=== PATIENT | female | born 1945 | race Caucasian/White ===

== ENCOUNTER 2017-09-18 08:35 | Outpatient (CLI) | payer MEDICARE ==
--- NOTE | 2017-09-18 12:10 | MRI ---
LUMBAR SPINE MRI NONCONTRAST: INDICATIONS: Low back pain with right lower extremity weakness. COMPARISON: 01/25/2016 FINDINGS: There are chronic endplate irregularities of the imaged low thoracic and lumbar spine. There is no a cute compression fracture or significant subluxation. The conus medullaris terminates at the L1 leve l. There is multilevel bilateral moderate degenerative facet hypertrophy, greatest inferiorly, withi n the lumbar spine. L5-S1: Disk osteophyte effaces the ventral thecal sac without significant central canal stenosis. M ild bilateral neural foraminal narrowing present. L4-L5: There is a left asymmetric disk osteophyte complex. Mild narrowing of the central canal is s een. There is mild right foraminal narrowing. No high grade left foraminal stenosis. L3-L4: Disk osteophyte complex results in minimal narrowing of the central canal. No high grade for aminal stenosis. L2-L3: Mild narrowing of the central canal due to a broad-based disk osteophyte. No high grade fora flex stenosis. L1-L2: Mild narrowing of the central canal. There is no significant compromise of the central canal or neural foramina otherwise depicted. IMPRESSION: Multilevel degenerative change of the lumbar spine, as outlined above. No significant interval detri mental change, comparing to 01/25/2016 examination. POS: [facility]
--- NOTE | 2017-09-18 12:20 | MRI ---
MRI PELVIS NONCONTRAST: CLINICAL HISTORY: Bilateral hip pain. FINDINGS: No acute marrow edema of the pelvic osseous structures. Minimal fluid signal intensity of each hip j oint is present without a significant joint effusion. There is mild osteophytosis of the sacroiliac joints. Incidental note of degenerative change at the low lumbar spine. There is a Tarlov cyst at t he S2 level. Mild degenerative signal alteration of each hip joint is present. No femoral head berenice apse. IMPRESSION: 1. No acute marrow edema of the pelvis osseous structures. 2. There is age-suspected mild degenerative change. 3. Incidental note of Tarlov cyst. POS: [facility]
== END 2017-09-18 08:36 | disposition home or self-care (01) ==
LOC: SCSMRI 08:35
PROVIDERS: ATTEND Physical Medicine & Rehabilitation
DX: R10.2 Pelvic and perineal pain (principal); M54.5 Low back pain; R53.1 Weakness; M79.604 Pain in right leg; G96.19 Other disorders of meninges, not elsewhere classified; M47.896 Other spondylosis, lumbar region
CPT/HCPCS: 72148; 72195

== ENCOUNTER 2018-03-06 10:41 | Outpatient (CLI) | payer MEDICARE ==
--- NOTE | 2018-03-06 13:18 | BD ---
BONE DENSITOMETRY USING DEXA: Date: 03/06/18 HISTORY: Postmenopausal screening for osteoporosis. FINDINGS: HIPS: BMD (g/cm2) Right Hip: Neck: 0.908 T-Score: 0.5 Z-Score: 2.4 Total: 1.067 T-Score: 1.0 Z-Score: 2.6 Left Hip: Neck: 0.897 T-Score: 0.4 Z-Score: 2.3 Total: 1.090 T-Score: 1.2 Z-Score: 2.8 IMPRESSION: Normal bone mineral density. No evidence of osteopenia/osteoporosis. POS: [facility]
== END 2018-03-06 10:42 | disposition home or self-care (01) ==
LOC: BICMAMMO 10:41
PROVIDERS: ATTEND Family Medicine
DX: Z12.31 Encounter for screening mammogram for malignant neoplasm of breast (principal); Z13.820 Encounter for screening for osteoporosis; M47.896 Other spondylosis, lumbar region
CPT/HCPCS: 77063; 77067; 77080

== ENCOUNTER 2021-03-16 14:23 | Outpatient (CLI) | payer MEDICARE | END 2021-03-16 14:24 | disposition home or self-care (01) | LOC: BICMAMMO 14:23 | PROVIDERS: ATTEND Physician Assistant | DX: Z12.31 Encounter for screening mammogram for malignant neoplasm of breast (principal); Z13.820 Encounter for screening for osteoporosis; Z78.0 Asymptomatic menopausal state | CPT/HCPCS: 77063; 77067; 77080 ==

== ENCOUNTER 2021-11-30 14:12 | Outpatient (CLI) | payer MEDICARE ==
[2021-11-30 15:28] LABS: #Basophils 0.1 10x3/uL (0.0-0.2); #Eosinphils 0.2 10x3/uL (0.0-0.5); #Monocytes 0.6 10x3/uL (0.0-1.1); #Neutrophils 3.8 10x3/uL (1.5-8.4); %Basophils 0.8 % (0.0-2.0); %Eosinophils 3.1 % (0.0-6.0); %Lymphocytes 36.4 % (18.0-47.0); %Monocytes 7.6 % (0.0-10.0); %Neutrophils 51.8 % (40.0-75.0); Hemoglobin 14.8 g/dL (12.0-15.5); Mean Corpuscular Hemoglobin 28.8 pg (27.0-33.0); Mean Corpuscular Volume 87.5 fl (81.6-98.3); Platelet Count 261 10x3/uL (150-450); RBC Distribution Width 13.2 % (11.5-14.5); Red Blood Cell (RBC) Count 5.13 10x6/uL (3.90-5.03); White Blood Cell (WBC) Count 7.3 10x3/uL (3.5-10.5)
[2021-11-30 15:44] LABS: Anion Gap 15 mmol/L (10-20); BUN (Urea Nitrogen) 17 mg/dL (9.8-20.1); Calc. Creatinine Clearance 0 mL/min (70-130); Calcium 9.4 mg/dL (7.8-10.44); Carbon Dioxide 22 mmol/L (23-31); Chloride 103 mmol/L (98-107); Estimated GFR 49; Glucose 148 mg/dL (83-110); Potassium 3.9 mmol/L (3.5-5.1); Sodium 136 mmol/L (136-145)
== END 2021-11-30 14:13 | disposition home or self-care (01) ==
LOC: LABBT 14:12
PROVIDERS: ATTEND Orthopaedic Surgery
DX: Z01.818 Encounter for other preprocedural examination (principal); M17.12 Unilateral primary osteoarthritis, left knee; Z20.822 Contact with and (suspected) exposure to COVID-19
CPT/HCPCS: 80048; 85025; 85610; 87081; 87811; 93005; 93010

== ENCOUNTER 2022-01-11 10:32 | Inpatient (IN) | payer MEDICARE ==
[2022-01-11 11:09] LABS: #Basophils 0.1 thou/uL (0.0-0.2); #Eosinphils 0.1 thou/uL (0.0-0.7); #Lymphocytes 2.5 thou/uL (1.20-3.40); #Monocytes 0.8 thou/uL (0.11-0.59); #Neutrophils 5.3 thou/uL (1.40-6.50); %Basophils 0.6 % (0.0-1.0); %Eosinophils 1.7 % (0.0-10.0); %Lymphocytes 28.3 % (21.0-51.0); %Monocytes 8.7 % (0.0-10.0); %Neutrophils 60.8 % (42.0-75.0); Hemoglobin 14.1 g/dL (12.0-16.0); Mean Corpuscular HGB CONC 32.1 g/dL (32.0-36.0); Mean Corpuscular Hemoglobin 29.5 pg (27.0-31.0); Mean Corpuscular Volume 91.7 fl (78.0-98.0); Mean Platelet Volume 7.7 fL (7.4-10.4); Platelet Count 248 thou/uL (130-400); RBC Distribution Width 12.4 % (11.5-14.5); Red Blood Cell (RBC) Count 4.79 mill/uL (4.20-5.40); White Blood Cell (WBC) Count 8.7 thou/uL (4.8-10.8)
[2022-01-11] MEDS ORDERED: FENTANYL 50 MCG/ML VIAL 50 MCG/ML VIAL ONE ×4 (11:17→16:32)
[2022-01-11 11:53] LABS: ALT (SGPT) 23 U/L (8-55); AST (SGOT) 32 U/L (5-34); Albumin 3.8 g/dL (3.4-4.8); Alkaline Phosphatase 95 U/L (40-110); Anion Gap 14 mmol/L (10-20); BUN (Urea Nitrogen) 21 mg/dL (9.8-20.1); Bilirubin, Total 0.5 mg/dL (0.2-1.2); Calc. Creatinine Clearance 0 mL/min (70-130); Calcium 9.3 mg/dL (7.8-10.44); Carbon Dioxide 21 mmol/L (23-31); Chloride 102 mmol/L (98-107); Estimated GFR 56; Globulin 3.1 g/dL (2.4-3.5); Glucose 120 mg/dL (83-110); Potassium 4.3 mmol/L (3.5-5.1); Protein, Total 6.9 g/dL (5.8-8.1); Sodium 133 mmol/L (136-145)
[2022-01-11] MEDS ORDERED: Ondansetron PF 4 MG/2 ML Vial ONE ×3 (11:55→14:38)
[2022-01-11] MEDS ORDERED: Morphine 2 MG/ML VIAL SLOW IVP PRN (12:02)
[2022-01-11] MEDS ORDERED: hydrALAZINE 20 MG/ML VIAL SLOW IVP PRN (12:02)
[2022-01-11] MEDS ORDERED: Ondansetron PF 4 MG/2 ML Vial IVP PRN (12:02)
[2022-01-11] MEDS ORDERED: TETANUS, DIPHTHERIA TOX,ADULT (TDVAX) 0.5 ML VIAL IM ONE (12:02)
[2022-01-11] MEDS: Sodium Chloride 0.9% 1,000 ML IV SCH ×2 (12:15→20:35)
[2022-01-11] MEDS ORDERED: CEFAZOLIN 2 GM in Sodium Chloride 0.9% 100 ML IVPB SCH (12:30)
[2022-01-11] MEDS ORDERED: Morphine 2 MG/ML VIAL ONE (13:20)
[2022-01-11] MEDS ORDERED: CEFAZOLIN 2 GM VIAL ONE (14:12)
[2022-01-11] MEDS ORDERED: Sodium Chloride 0.9% 100 ML ONE (14:12)
[2022-01-11] MEDS ORDERED: fentaNYL Citrate/PF 100 MCG/2 ML SYRINGE ONE (14:16)
[2022-01-11] MEDS ORDERED: Dexamethasone 20 MG/5 ML VIAL ONE (14:38)
[2022-01-11] MEDS ORDERED: PROPOFOL 200 MG/20 ML VIAL ONE (14:38)
[2022-01-11] MEDS ORDERED: PHENYLEPHRINE-NS 100 MCG/ML 10 ML SYRINGE ONE (14:38)
[2022-01-11 14:45] LABS: SARS-CoV-2 NAA Rapid Test Not Detected (NotDetected)
[2022-01-11] MEDS ORDERED: Bupivacaine HCl 0.5%/Epinephrine 1:200,000/PF 30 ml Vial ONE (15:05)
[2022-01-11 17:26] VITALS: BMI 41.9
[2022-01-11] MEDS: Acetaminophen 500 MG TAB PO SCH (18:09)
[2022-01-11] MEDS: Escitalopram Oxalate 20 mg Tablet PO SCH (20:17)
[2022-01-11] MEDS: Famotidine/PF 20 mg/2ml Vial SLOW IVP SCH (20:17)
[2022-01-11] MEDS: Amitriptyline HCl 25 MG TAB PO SCH (20:17)
[2022-01-11] MEDS ORDERED: Morphine 4 MG/ML VIAL SLOW IVP PRN (20:28)
[2022-01-11] MEDS: CEFAZOLIN 2 GM in Sodium Chloride 0.9% 100 ML IVPB SCH (22:00)
[2022-01-12] MEDS: Acetaminophen 500 MG TAB PO SCH ×2 (00:20→06:07)
[2022-01-12] MEDS: Sodium Chloride 0.9% 1,000 ML IV SCH (00:21)
[2022-01-12 05:30] LABS: Bacteria/HPF 4+ HPF (None Seen); Bilirubin Negative (Negative); Blood, Urine Negative (Negative); Clarity Clear (Clear); Glucose, Urine (Dipstick) Normal (Negative); Ketone, Urine 10 mg/dL (Negative); Leukocyte 250 Leu/uL (Negative); Nitrite 2+ (Negative); Protein, Urine (Dipstick) Negative (Neg-Trace); RBC/HPF 0-3 HPF (0-3); Specific Gravity, Urine 1.024 (1.002-1.036); Squamous Epithelial 0-3 HPF (0-3); Urobilinogen Normal mg/dL (Less than 2); WBC/HPF 21-50 HPF (0-3)
[2022-01-12 05:34] LABS: Urine Culture Reflex Yes Yes
[2022-01-12] MEDS: CEFAZOLIN 2 GM in Sodium Chloride 0.9% 100 ML IVPB SCH (06:07)
[2022-01-12 06:19] LABS: #Lymphocytes 1.5 thou/uL (1.20-3.40); #Monocytes 0.8 thou/uL (0.11-0.59); #Neutrophils 10.9 thou/uL (1.40-6.50); %Basophils 0.2 % (0.0-1.0); %Eosinophils 0.2 % (0.0-10.0); %Lymphocytes 11.5 % (21.0-51.0); %Monocytes 6.2 % (0.0-10.0); %Neutrophils 81.9 % (42.0-75.0); Hemoglobin 12.7 g/dL (12.0-16.0); Mean Corpuscular HGB CONC 31.3 g/dL (32.0-36.0); Mean Corpuscular Hemoglobin 29.6 pg (27.0-31.0); Mean Corpuscular Volume 94.5 fl (78.0-98.0); Mean Platelet Volume 7.8 fL (7.4-10.4); Platelet Count 243 thou/uL (130-400); RBC Distribution Width 12.3 % (11.5-14.5); Red Blood Cell (RBC) Count 4.29 mill/uL (4.20-5.40); White Blood Cell (WBC) Count 13.3 thou/uL (4.8-10.8)
[2022-01-12 06:28] LABS: Phosphorus 2.6 mg/dL (2.3-4.7)
[2022-01-12 06:35] LABS: Anion Gap 11 mmol/L (10-20); BUN (Urea Nitrogen) 21 mg/dL (9.8-20.1); Calc. Creatinine Clearance 90 mL/min (70-130); Calcium 8.8 mg/dL (7.8-10.44); Carbon Dioxide 22 mmol/L (23-31); Chloride 104 mmol/L (98-107); Estimated GFR 59; Glucose 137 mg/dL (83-110); Magnesium 1.9 mg/dL (1.6-2.6); Potassium 4.8 mmol/L (3.5-5.1); Sodium 132 mmol/L (136-145)
[2022-01-12] MEDS ORDERED: traMADol HCl 50 MG TAB PO PRN (06:44)
[2022-01-12] MEDS ORDERED: Ibuprofen 200 MG TAB PO PRN (06:48)
[2022-01-12] MEDS ORDERED: FLU VACC QS2022-23(65YR UP)/PF 240 MCG/0.7 ML SYRINGE IM ONE (09:00)
[2022-01-12] MEDS: Famotidine/PF 20 mg/2ml Vial SLOW IVP SCH ×2 (09:24→19:50)
[2022-01-12] MEDS: Aspirin 81 mg Enteric Coated Tablet PO SCH ×2 (09:24→19:51)
[2022-01-12] MEDS: Acetaminophen/Codeine 30-300mg Tablet PO SCH ×3 (09:25→19:51)
[2022-01-12] MEDS ORDERED: Ibuprofen 200 MG TAB PO SCH (09:45)
[2022-01-12] MEDS ORDERED: CeleCOXIB 100 MG CAP PO SCH (10:00)
[2022-01-12] MEDS ORDERED: traMADol HCl 50 MG TAB PO SCH (12:00)
[2022-01-12] MEDS: traMADol HCl 50 MG TAB PO SCH ×2 (12:04→17:05)
[2022-01-12] MEDS: Escitalopram Oxalate 20 mg Tablet PO SCH (19:50)
[2022-01-12] MEDS: CeleCOXIB 100 MG CAP PO SCH (19:51)
[2022-01-12] MEDS: Amitriptyline HCl 25 MG TAB PO SCH (19:52)
[2022-01-13] MEDS: traMADol HCl 50 MG TAB PO SCH ×4 (00:22→17:33)
[2022-01-13] MEDS: Acetaminophen/Codeine 30-300mg Tablet PO SCH ×4 (03:17→19:53)
[2022-01-13 06:51] LABS: #Eosinphils 0.1 thou/uL (0.0-0.7); #Lymphocytes 2.7 thou/uL (1.20-3.40); #Neutrophils 7.2 thou/uL (1.40-6.50); %Basophils 0.4 % (0.0-1.0); %Eosinophils 1.1 % (0.0-10.0); %Lymphocytes 24.2 % (21.0-51.0); %Monocytes 9.2 % (0.0-10.0); %Neutrophils 65.2 % (42.0-75.0); Hemoglobin 11.2 g/dL (12.0-16.0); Mean Corpuscular HGB CONC 30.4 g/dL (32.0-36.0); Mean Corpuscular Hemoglobin 28.3 pg (27.0-31.0); Mean Corpuscular Volume 93.3 fl (78.0-98.0); Mean Platelet Volume 7.9 fL (7.4-10.4); Platelet Count 217 thou/uL (130-400); RBC Distribution Width 12.4 % (11.5-14.5); Red Blood Cell (RBC) Count 3.95 mill/uL (4.20-5.40); White Blood Cell (WBC) Count 11.1 thou/uL (4.8-10.8)
[2022-01-13 07:04] LABS: Anion Gap 12 mmol/L (10-20); BUN (Urea Nitrogen) 22 mg/dL (9.8-20.1); Calc. Creatinine Clearance 94 mL/min (70-130); Calcium 8.8 mg/dL (7.8-10.44); Carbon Dioxide 24 mmol/L (23-31); Chloride 103 mmol/L (98-107); Estimated GFR 62; Glucose 90 mg/dL (83-110); Magnesium 2.2 mg/dL (1.6-2.6); Phosphorus 2.7 mg/dL (2.3-4.7); Potassium 4.7 mmol/L (3.5-5.1); Sodium 134 mmol/L (136-145)
[2022-01-13] MEDS: CeleCOXIB 100 MG CAP PO SCH ×2 (08:27→19:53)
[2022-01-13] MEDS: Famotidine/PF 20 mg/2ml Vial SLOW IVP SCH ×2 (08:27→19:54)
[2022-01-13] MEDS: Aspirin 81 mg Enteric Coated Tablet PO SCH ×2 (08:28→19:53)
[2022-01-13] MEDS: Amitriptyline HCl 25 MG TAB PO SCH (19:53)
[2022-01-13] MEDS: Escitalopram Oxalate 20 mg Tablet PO SCH (19:54)
[2022-01-14] MEDS: traMADol HCl 50 MG TAB PO SCH ×5 (00:10→23:23)
[2022-01-14] MEDS: Acetaminophen/Codeine 30-300mg Tablet PO SCH ×4 (05:14→19:31)
[2022-01-14] MEDS: CeleCOXIB 100 MG CAP PO SCH ×2 (09:44→19:31)
[2022-01-14] MEDS: Aspirin 81 mg Enteric Coated Tablet PO SCH ×2 (09:44→19:31)
[2022-01-14] MEDS: Famotidine/PF 20 mg/2ml Vial SLOW IVP SCH ×2 (09:44→19:32)
[2022-01-14] MEDS: Amitriptyline HCl 25 MG TAB PO SCH (19:32)
[2022-01-14] MEDS: Escitalopram Oxalate 20 mg Tablet PO SCH (19:32)
[2022-01-15] MEDS: Acetaminophen/Codeine 30-300mg Tablet PO SCH ×4 (02:45→20:55)
[2022-01-15] MEDS: traMADol HCl 50 MG TAB PO SCH ×4 (06:04→23:26)
[2022-01-15] MEDS: CeleCOXIB 100 MG CAP PO SCH ×2 (08:44→20:54)
[2022-01-15] MEDS: Famotidine/PF 20 mg/2ml Vial SLOW IVP SCH ×2 (08:44→21:03)
[2022-01-15] MEDS: Aspirin 81 mg Enteric Coated Tablet PO SCH ×2 (08:45→20:55)
[2022-01-15] MEDS ORDERED: Cyclobenzaprine 10 MG TAB PO PRN (12:44)
[2022-01-15 18:18] LABS: Bacteria/HPF None Seen HPF (None Seen); Bilirubin Negative (Negative); Blood, Urine Negative (Negative); Clarity Clear (Clear); Glucose, Urine (Dipstick) Normal (Negative); Ketone, Urine Negative (Negative); Leukocyte Negative Leu/uL (Negative); Nitrite Negative (Negative); Protein, Urine (Dipstick) Negative (Neg-Trace); RBC/HPF 0-3 HPF (0-3); Specific Gravity, Urine 1.013 (1.002-1.036); Squamous Epithelial 0-3 HPF (0-3); Urobilinogen Normal mg/dL (Less than 2); WBC/HPF 0-3 HPF (0-3)
[2022-01-15 18:22] LABS: Urine Culture Reflex No No
[2022-01-15] MEDS: Amitriptyline HCl 25 MG TAB PO SCH (20:54)
[2022-01-15] MEDS: Escitalopram Oxalate 20 mg Tablet PO SCH (20:55)
[2022-01-16] MEDS: Acetaminophen/Codeine 30-300mg Tablet PO SCH ×3 (04:03→15:28)
[2022-01-16] MEDS: traMADol HCl 50 MG TAB PO SCH ×2 (06:15→13:47)
[2022-01-16] MEDS: CeleCOXIB 100 MG CAP PO SCH (10:05)
[2022-01-16] MEDS: Aspirin 81 mg Enteric Coated Tablet PO SCH (10:06)
[2022-01-16 15:44] VITALS: BP 115/77; TEMP 97
== END 2022-01-16 15:47 | DRG 493 ==
LOC: ERS 10:32 → SDC 14:05 → SURG A 17:05 → OBSVTOIN 17:05 → NEURO 01-15 15:22
PROVIDERS: ADMIT Surgery; ATTEND Surgery
PROC: 0QSG04Z Reposition Right Tibia with Internal Fixation Device, Open Approach (ICD-10-PCS; principal; 2022-01-11)
DX: S82.841A Displaced bimalleolar fracture of right lower leg, initial encounter for closed fracture (principal); E87.1 Hypo-osmolality and hyponatremia; Z20.822 Contact with and (suspected) exposure to COVID-19; Z23 Encounter for immunization; F32.A Depression, unspecified; G43.909 Migraine, unspecified, not intractable, without status migrainosus; F41.9 Anxiety disorder, unspecified; E55.9 Vitamin D deficiency, unspecified; Z96.653 Presence of artificial knee joint, bilateral; W18.39XA Other fall on same level, initial encounter; I95.89 Other hypotension; Z90.710 Acquired absence of both cervix and uterus; Z90.49 Acquired absence of other specified parts of digestive tract; Z98.890 Other specified postprocedural states; Z82.49 Family history of ischemic heart disease and other diseases of the circulatory system; Z82.0 Family history of epilepsy and other diseases of the nervous system; Z87.891 Personal history of nicotine dependence; Z91.040 Latex allergy status; Z88.8 Allergy status to other drugs, medicaments and biological substances; Z91.09 Other allergy status, other than to drugs and biological substances; Z79.899 Other long term (current) drug therapy; Z79.82 Long term (current) use of aspirin
CPT/HCPCS: 27818; 36415; 70450; 71045; 80048; 80053; 81001; 83735; 84100; 84443; 84484; 85025; 87086; 90471; 90662; 93005; 93010; 93306; 93880; 96374; 96375; C1713; G0008; J1100; J2270; J2405; J2704; J3010; J3490; J7050; S0028; U0002

== ENCOUNTER 2023-02-02 08:33 | Day surgery (SDC) | payer MEDICARE ==
[2023-02-01 13:29] VITALS: BMI 37.3
[2023-02-02] MEDS ORDERED: PROPOFOL 20 ML ONE (12:17)
[2023-02-02] MEDS ORDERED: fentaNYL PF 100 MCG/2 ML SYRINGE ONE (12:17)
[2023-02-02] MEDS ORDERED: EPINEPHrine 1 MG/ML VIAL ONE (12:36)
[2023-02-02] MEDS ORDERED: Bupivacaine PF 0.5% 30 ML VIAL ONE (12:37)
[2023-02-02] MEDS ORDERED: PROPOFOL 40 ML ONE (12:43)
[2023-02-02] MEDS ORDERED: Sodium Chloride 0.9% 100 ML ONE (12:47)
[2023-02-02] MEDS ORDERED: CEFAZOLIN 2 GM VIAL ONE (12:47)
[2023-02-02] MEDS ORDERED: Vancomycin 1 GM VIAL ONE (13:01)
[2023-02-02] MEDS ORDERED: PHENYLEPHRINE-NS 100 MCG/ML 10 ML SYRINGE ONE ×2 (13:01→13:26)
[2023-02-02] MEDS ORDERED: PROPOFOL 200 MG/20 ML VIAL ONE (13:01)
== END 2023-02-02 15:20 | disposition home or self-care (01) ==
LOC: SDC 08:33
PROVIDERS: ATTEND Specialist
PROC: 0JPT0MZ Removal of Stimulator Generator from Trunk Subcutaneous Tissue and Fascia, Open Approach (ICD-10-PCS; principal; 2023-02-02)
PROC: 0JH70MZ Insertion of Stimulator Generator into Back Subcutaneous Tissue and Fascia, Open Approach (ICD-10-PCS; 2023-02-02)
DX: M96.1 Postlaminectomy syndrome, not elsewhere classified (principal); G89.4 Chronic pain syndrome; Z87.891 Personal history of nicotine dependence; Z91.040 Latex allergy status; Z88.8 Allergy status to other drugs, medicaments and biological substances; Z90.710 Acquired absence of both cervix and uterus; Z96.653 Presence of artificial knee joint, bilateral; Z90.49 Acquired absence of other specified parts of digestive tract
CPT/HCPCS: 63685; C1820; J0171; J2704; J3370; J3490; S0020

== ENCOUNTER 2023-06-08 14:03 | Outpatient (CLI) | payer MEDICARE | END 2023-06-08 14:04 | disposition home or self-care (01) | LOC: BICMAMMO 14:03 | PROVIDERS: ATTEND Physician Assistant | DX: Z12.31 Encounter for screening mammogram for malignant neoplasm of breast (principal); Z13.820 Encounter for screening for osteoporosis; Z78.0 Asymptomatic menopausal state | CPT/HCPCS: 77063; 77067; 77080 ==